=== PATIENT | female | born 1980 | race Caucasian/White ===

== ENCOUNTER 2021-09-11 12:31 | Outpatient (CLI) | payer OTHER, SELFPAY | END 2021-09-11 12:32 | disposition home or self-care (01) | PROVIDERS: PCP Family Medicine; Visit Provider Obstetrics & Gynecology | DX: N92.0 Excessive and frequent menstruation with regular cycle (principal); Z01.818 Encounter for other preprocedural examination | CPT/HCPCS: 36415; 86850; 86900; 86901 ==

== ENCOUNTER 2021-09-15 01:41 | Day surgery (SDC) | payer OTHER, SELFPAY ==
[2021-09-09 09:14] VITALS: BMI 21.7
--- NOTE | 2021-09-09 09:15 | SUR.PREOP ---
Report to the Outpatient Waiting Room, entrance under the green pavilion located off [facility], at time 0600 on date 09/15/21. OR Time: 0730. - You and your visitor will be asked a series of questions to screen for COVID 19 for your protection. - Only one visitor is allowed at this time. - The patient visitor is requested to leave or wait in car when not with patient. - A mask is required within the hospital. Patients may have clear liquids (water, carbonated beverages, clear teas, apple juice) until 3 hours prior to surgery with a maximum of 20 ounces. - No food from midnight until time of surgery - Infants may have breast milk until 4 hours before surgery, formula 6 hours prior to surgery. - Children will be allowed to drink immediately following surgery. If applicable, please bring a bottle or sippy cup to assist with drinking. Juice, water, soda, and popsicles are readily available. For infants on formula, please bring formula the day of surgery. Pacifiers are allowed. Take the following medications with a SIP of water the morning of surgery: N/A Medications to discontinue per physician N/A Date to take last dose N/A Please no make-up, nail thai, hairspray, perfume, deodorant, or body powder the day of surgery. No jewelry (including any body piercings) or valuables the day of surgery, leave them at home. Please take a shower or bath the night before, or the morning of, surgery with an antibacterial soap. Wear comfortable, loose fitting clothing. Children are encouraged to wear pajamas. - Jewelry must be removed prior to entering the operating room. Rings and piercings that are not removed may be cut off. - The hospital will not accept responsibility for valuables. - Please leave all valuables, including medications, at home the day of surgery. If you are going home after surgery, a licensed funeral car driver must drive you home. - NO public transportation without another adult. - We recommend that an adult stay with you for 24 hours following discharge. - We also recommend that you do not drive, make important decision, drink alcoholic beverages, or take any drugs that were not prescribed by your health care provider for at least 24 hours after your discharge time. For Pediatric surgeries, we recommend two adults accompany the child home (only one inside the building at this time). Follow any additional instructions given to you from your surgeon. If you or anyone in your household have experienced Covid symptoms in the past week, please notify your surgeon or the nurse liaison at the phone number below for possible testing. Telephone instructions given to DANNY OVALLES and asked if any additional questions and then verbalized understanding. Patient advised to call surgeon office or pre surgery nurse liaison [phone] if any additional questions.
[2021-09-15] VITALS (12 sets, daily range): BP systolic 90–110; BP diastolic 49–74; PULSE 45–87; RESP 12–18; TEMP 36.3–37.4; O2SAT 95–100
[2021-09-15] MEDS: ACETAMINOPHEN 500 MG TABLET 1000 MG PO (06:30)
[2021-09-15] MEDS: KETOROLAC 15 MG/ML VIAL (*BKC) IV PUSH (06:30)
[2021-09-15] MEDS: LACTATED RINGERS 1,000 ML 30 ML IV CONT (06:30)
--- NOTE | 2021-09-15 06:39 | P.PNAN_ITS ---
Anes - Initial Pre Proc Eval Procedure: Operation Date: 09/15/21 07:30 Proposed Procedures p Total Laparoscopic Hysterectomy with Bilateral Salpingo Oophorectomy - Vonnie Guzman MD Date/Time: 09/15/21 06:39 Surgeon: Vonnie Guzman MD Pre Op Diagnosis: menorrhagia Patient Data Age: 40 Gender: F Height: 1.68 m Weight: 60.8 kg Last Vital Signs Temp 36.6 C 09/15/21 06:05 Pulse 70 09/15/21 06:05 Resp 16 09/15/21 06:05 BP 110/74 09/15/21 06:05 Pulse Ox 100 09/15/21 06:05 O2 Del Method Room Air 09/15/21 06:05 Allergies Allergy/AdvReac Type Severity Reaction Status Date / Time codeine Allergy Hallucinati Verified 09/15/21 06:11 ng Home Medications Medication Instructions Recorded Confirmed Type No Home Medications 09/09/21 09/15/21 History Patient hx anesthesia problems: none Family hx anesthesia problems: none Results Review: All pre-operative results and documents have been reviewed as part of the pre- operative evaluation. PMF Social History Social History Smoking status: Never smoker Living arrangements: with family Spiritual care concerns: No Anes - Eval Final PreProcedure Day of Procedure 09/15/21 06:39 Patient weight: normal Heart: regular rate and rhythm Lungs: clear to auscultation Airway: Mallampati scale class 1 Neurological: alert and oriented Last oral intake: >/= 8 hours ASA classification: I Emergent: no Anesthetic plan: proceed Anesthesia type and monitoring: general ETT and standard monitoring Results Review: All pre-operative results and documents have been reviewed as part of the pre- operative evaluation. Informed Consent: The patient's anesthetic plan and its attendant risks and benefits were discussed with the patient/family/POA. Questions were solicited and answers provided to the satisfaction of the patient/family/POA.
--- NOTE | 2021-09-15 07:12 | WPDHPUPDATE1 ---
History and Physical Update Update Date/Time: 09/15/21 07:12 History and Physical has been reviewed, including an updated exam of the patient. There are NO changes in the patient's condition. Risks, benefits, and alternatives have been discussed and questions answered. Patient agrees to proceed with procedure.
--- NOTE | 2021-09-15 07:18 | PM.IMHP ---
H&P: HPI History of Present Illness Date/Time: 09/15/21 07:18 Chief Complaint: Menorrhagia Narrative: This patient is a 40-year-old female with severe menorrhagia and a strong family history of ovarian cancer. We have agreed to perform total laparoscopic hysterectomy and bilateral salpingo-oophorectomy. She understands the risk. She understands that injuries may occur that result in hospitalization, more surgery, and severe illness. She understands there is risk of hemorrhage and infection. We have agreed to proceed. Review of Systems Review of Systems: All systems reviewed & are unremarkable except as noted in HPI and below Constitutional: Constitutional: Denies chills, Denies fatigue, Denies fever(s) and Denies weakness Eyes: Eyes: Denies blurry vision, Denies change in vision, Denies loss of peripheral vision, Denies loss of vision, Denies other visual disturbances and Denies eye pain ENT: Denies vertigo, Denies dizziness, Denies hearing loss, Denies mouth pain, Denies nasal obstruction, Denies neck mass and Denies neck pain Cardiovascular: Cardiovascular: Denies chest pain, Denies diaphoresis, Denies syncope, Denies leg edema and Denies dyspnea Respiratory: Respiratory: Denies chest congestion, Denies cough, Denies hemoptysis, Denies dyspnea and Denies wheezing Gastrointestinal: Gastrointestinal: Denies abdominal pain, Denies constipation, Denies diarrhea, Denies nausea and Denies vomiting Genitourinary: Genitourinary: Denies hematuria, Denies change in libido, Denies nocturia, Denies genital lesions, Denies flank pain and Denies urinary urgency Musculoskeletal: Musculoskeletal: Denies abnormal gait, Denies back pain, Denies myalgias, Denies arthralgias, Denies joint swelling, Denies muscle weakness and Denies neck pain Integumentary/Breasts: Skin/Breast: Denies swelling, Denies breast pain, Denies breast mass, Denies dry skin, Denies nipple discharge, Denies unusual bruising and Denies jaundice Neurologic: Denies Neuro-related abnormal movements, Denies Abnormal speech present, Denies abnormal gait, Denies behavioral changes, Denies confusion, Denies vertigo, Denies dizziness, Denies syncope, Denies loss of vision, Denies memory loss, Denies convulsions and Denies weakness Psychiatric: Psychiatric: Denies abnormal sleep pattern, Denies behavioral changes, Denies change in libido, Denies confusion, Denies depression, Denies anhedonia and Denies memory loss Endocrine: Endocrine: Reports no additional endocrine complaints, Denies change in libido and Denies fatigue Hematologic/Lymphatic: Hematologic/Lymphatic: Reports no additional hematologic/lymphatic complaints Allergic/Immunologic: Allergic/Immunologic: Reports no additional allergic/immunologic complaints and Denies wheezing PMFSH Social History Social History Smoking status: Never smoker Living arrangements: with family Spiritual care concerns: No Meds Home Medications and Allergies Home Medications Medication Instructions Recorded Confirmed Type No Home Medications 09/09/21 09/15/21 History Allergies Allergy/AdvReac Type Severity Reaction Status Date / Time codeine AdvReac Hallucinati Verified 09/15/21 07:16 ng Vital Signs Vital Signs - 24 hr 09/15/21 06:05 Temperature 97.9 F Pulse Rate 70 Respiratory Rate 16 Blood Pressure 110/74 Pulse Oximetry 100 Oxygen Delivery Room Air Exam Const: General: cooperative, healthy appearing, comfortable and no acute distress; No confusion Orientation/consciousness: oriented to person, oriented to place, oriented to time and No confusion HENMT: Head: normal to inspection Ears: external ears normal General nose exam: Normal external nose present Face and sinus: normal facial exam Eyes: General: appearance normal, both eyes and all related structures Neck: Neck: normal visual inspection, trachea midline and supple Resp: Auscultation: clear to auscultation bilaterally, no crack
[2021-09-15] MEDS: ceFAZolin 2 GM/D5W 50 ML 2 GM/50 ML BAG IVPB (07:28)
[2021-09-15] MEDS: ceFAZolin SODIUM 1 GM VIAL IRRIGATION (08:24)
--- NOTE | 2021-09-15 09:01 | P.OP_ITS ---
Procedure Note - Detailed Date of Procedure 09/15/21 Pre-op Diagnosis menorrhagia, family history of ovarian cancer Post-op Diagnosis Same Procedure Performed Total laparoscopic hysterectomy and bilateral salpingo-oophorectomy. Surgeon Vonnie Guzman MD Anesthesia General Indications Menorrhagia and family history of ovarian cancer Findings Mildly enlarged uterus, normal-appearing tubes and ovaries. Normal vulva vagina and cervix. Description of Procedure This patient was taken to the operating room. She was prepped and draped in the dorsal lithotomy position after induction of general anesthesia. The uterine manipulator and Max cup were placed. This was done with a speculum and tenaculum. The speculum was placed. The cervix was grasped with a tenaculum. The stay sutures were placed at 3 and 9:00 a.m.. The stay sutures of 0 Vicryl were brought through the appropriately sized Max cup. The tip of the ADAM manipulator was placed in the intrauterine cavity. The cup was slid into place around the cervix and into the fornices. It was locked into place. The sutures were then wrapped around the handle and tied under tension. A 5 mm skin incision was made in the left upper quadrant the abdomen. A 5 mm trocar was inserted into the intrauterine cavity under direct visualization of the scope. Pneumoperitoneum was achieved. A left lower quadrant 11 mm incision was made with scalpel. An 11 mm trocar was inserted into the anterior abdominal cavity under direct visualization the scope. A 5 mm infraumbilical incision was made with a scalpel and a 5 mm trocar was inserted the intra-abdominal cavity under direct visualization of the scope. Bilateral ureteral lysis was performed. This was done from the pelvic brim down to the uterine artery. This was done with careful dissection using sharp and blunt dissection. The infundibulopelvic ligaments were isolated after identification of the ureters bilaterally. These infundibulopelvic ligaments were cauterized and transected with LigaSure cautery. The para ovarian tissue was cauterized and transected with LigaSure cautery bilaterally. Moving around the ovary into the broad ligament the tissue was cauterized transected with Lig aSure cautery. The round ligaments were cauterized transected with LigaSure cautery this was all done in a bilateral fashion. In a stepwise fashion along the lateral aspects of the uterus the round ligament and broad ligaments were cauterized transected down to the level of the uterine arteries. A bladder flap was created in the bladder was moved distally to the end of the cervix and over the Max cup. The bilateral uterine arteries were cauterized and transected. Colpotomy was then performed. In a circumferential fashion the vagina was transected using unipolar cautery. The incision was made down on the Max cup. The uterus, cervix, fallopian tubes and ovaries were taken out through the vagina. A pneumo occluder was placed in the vagina. The vaginal cuff was closed with a 0 V lock suture in a running fashion. The pelvis was irrigated with copious amounts antibiotic irrigation. The ureters were again examined and found to be intact and flowing freely under the uterine arteries into the bladder. The bladder was intact. It was examined directly. The vagina was irrigated with Betadine solution after removal of the Pneumo occluder. The patient was taken to recovery room. She was stable condition. Sponge lap and needle counts were correct x2. Drains Yes Packing No Pathology Yes Complications No immediate complications Condition Stable Disposition Floor
[2021-09-15] MEDS: fentaNYL CITRATE INJ (*CRX) 100 MCG/2 ML VIAL 25 MCG IV PUSH ×2 (09:38→10:10)
--- NOTE | 2021-09-15 10:25 | PC.NURSE ---
This patient, Hernandez Lopez, was received from PACU via bed on 09/15/21 at 1025. Patient/family oriented to unit policies and routines
[2021-09-15] MEDS: DEXTROSE 5%/0.45% SOD CHL 1,000 ML 125 ML IV CONT (11:10)
[2021-09-15] MEDS: ESTRADIOL 7 DAY 0.05 MG PATCH TRANSDERM (11:10)
[2021-09-15] MEDS: KETOROLAC 30 MG/ML VIAL (*BKC) IV PUSH (11:22)
[2021-09-15] MEDS: HYDROcodone/acetaminophen (*CRX) 10-325 MG TABLET 1 TAB PO ×2 (13:07→19:42)
[2021-09-15] MEDS: ONDANSETRON INJ 4 MG/2 ML VIAL IV PUSH (20:24)
[2021-09-16 04:45] VITALS: PULSE 80; RESP 16; O2SAT 98
[2021-09-16 05:05] VITALS: BP 88/53; PULSE 80; RESP 16; TEMP 37.1; O2SAT 98
--- NOTE | 2021-09-16 07:00 | PC.NURSE ---
PT introductions made and plan of care discussed per post op station mechanic surgery, pain management, daily care activities and pending discharge to home. PT sole recipient of such instructions and no barriers to learning identified at this time. PT received such instructions per one to one discussion, and demonstrations this shift. PT verbalized understanding of such care.
[2021-09-16] MEDS: KETOROLAC 30 MG/ML VIAL (*BKC) IV PUSH (07:06)
[2021-09-16] MEDS: HYDROcodone/acetaminophen (*CRX) 10-325 MG TABLET 1 TAB PO ×2 (07:07→10:26)
[2021-09-16 07:10] VITALS: BP 113/68; PULSE 86; RESP 14; TEMP 36.6; O2SAT 100
--- NOTE | 2021-09-16 09:51 | WPDANESPN ---
Anes - Prog Note Post-Op Date/Time: 09/16/21 09:51 Vital Signs: Last Vital Signs Temp 37.1 C 09/16/21 05:05 Pulse 80 09/16/21 05:05 Resp 16 09/16/21 05:05 BP 88/53 L 09/16/21 05:05 Pulse Ox 98 09/16/21 05:05 O2 Del Method Room Air 09/16/21 04:45 O2 Flow Rate 10 09/15/21 09:20 Pain Score (VAS): 0 I/O: Intake & Output 09/15/21 09/16/21 09/16/21 23:59 07:59 15:59 Output Total 160 120 Balance -160 -120 Patient Feedback: Patient satisfied with anesthetic care.
[2021-09-16] MEDS: SIMETHICONE 80 MG TAB.CHEW ×3 (10:21→13:56)
[2021-09-16] MEDS: DOCUSATE SODIUM 100 MG CAPSULE (10:27)
--- NOTE | 2021-09-16 10:54 | PM.GYNPNOP ---
VOLUNTEER PATIENT REPRESENTATIVE - A/P Postoperative Procedures: Procedures Operation Date: 09/15/21 07:30 Actual Procedure Side Surgeon p Total Laparoscopic Hysterectomy with Bilateral Salpingo Oophorectomy Bilateral Vonnie Guzman MD Postoperative day: 1 Postoperative status: doing well and other (Tollerating Regular Diet) Postoperative plan: routine post-op care and discharge Time Spent With Patient Time: Total time spent is greater than 50% in coordination of care (as documented) at patient's floor/unit and/or counseling patient: Time with patient: 15 - 25 minutes VOLUNTEER PATIENT REPRESENTATIVE- PN:Subj Post-Op Subjective Date/time seen: 09/16/21 10:54 Subjective: patient reports feeling better, pain is well controlled and patient is tolerating oral intake Exam Const: General: cooperative, healthy appearing, comfortable and no acute distress Resp: Auscultation: no crackles, no rales, no rhonchi and no wheezes Cardio: Rhythm: regular rhythm Heart sounds: no click and no murmurs GI: Inspection: non-distended Auscultation: normal bowel sounds Other: Incisions - CDI Extrem: General: normal to inspection, no pedal edema and no calf tenderness VOLUNTEER PATIENT REPRESENTATIVE - PN: Obj Data Vital Signs Vital Signs: Vital Signs - 24 hr 09/15/21 12:06 09/15/21 16:05 09/15/21 20:00 Temperature 99.4 F 98.0 F 98.6 F Pulse Rate 60 58 L 68 Respiratory Rate 16 18 16 Blood Pressure 98/61 L 99/53 L 105/63 Pulse Oximetry 95 99 Oxygen Delivery 09/15/21 23:27 09/15/21 23:27 09/16/21 05:05 Temperature 98.8 F 98.8 F Pulse Rate 87 87 80 Respiratory Rate 18 18 16 Blood Pressure 90/49 L 88/53 L Pulse Oximetry 98 98 98 Oxygen Delivery Room Air 09/16/21 04:45 Temperature Pulse Rate 80 Respiratory Rate 16 Blood Pressure Pulse Oximetry 98 Oxygen Delivery Room Air Intake/Output Intake/Output: Intake & Output 09/13/21 09/14/21 09/15/21 09/16/21 23:59 23:59 23:59 23:59 Intake Total 250 Output Total 365 120 Balance -115 -120 Meds/Results Medications: Active Medications Generic Name Dose Route Start Last Admin Trade Name Freq PRN Reason Stop Dose Admin Hydrocodone Bitart/Acetaminophen 1 tab 09/15/21 10:21 Hydrocodone/Acetaminophen (*Crx) 5-325 Mg Tablet PO Q3H PRN Pain Rated 5 or Less Hydrocodone Bitart/Acetaminophen 1 tab 09/15/21 10:21 09/16/21 10:26 Hydrocodone/Acetaminophen (*Crx) 10-325 Mg Tablet PO 1 tab Q3H PRN Administration Pain Rated 6 or Greater Estradiol 0.05 mg 09/15/21 10:21 09/15/21 11:10 Estradiol 7 Day 0.05 Mg Patch TRANSDERM 0.05 mg WEEKLY YANDEL Administration Dextrose/Sodium Chloride 1,000 mls @ 125 mls/hr 09/15/21 10:21 09/15/21 11:10 Dextrose 5% Sodium Chloride 0.45% IV CONT 125 mls/hr .Q8H YANDEL Administration Ibuprofen 600 mg 09/15/21 10:21 Ibuprofen 600 Mg Tablet PO Q6H PRN Cramping Ketorolac Tromethamine 30 mg 09/15/21 10:21 09/16/21 07:06 Ketorolac 30 Mg/Ml Vial (*Bkc) IV PUSH 09/20/21 10:20 30 mg Q6H PRN Administration Pain Rated 4-6 Naloxone HCl 0.1 mg 09/15/21 10:21 Naloxone Hcl 0.4 Mg/Ml Vial IV PUSH Q2M PRN Respiratory rate less than 10 Ondansetron HCl 4 mg 09/15/21 10:21 09/15/21 20:24 Ondansetron Inj 4 Mg/2 Ml Vial IV PUSH 4 mg Q6H PRN Administration Nausea And Vomiting
[2021-09-16] MEDS: IBUPROFEN 600 MG TABLET PO (14:00)
[2021-09-16] MEDS: HYDROcodone/acetaminophen (*CRX) 5-325 MG TABLET 1 TAB PO (14:00)
--- NOTE | 2021-09-16 14:30 | PC.NURSE ---
Pt received discharge instructions per protocol and verbalized understanding of such care.
--- NOTE | 2021-09-16 15:09 | PC.NURSE ---
PT discharged to home via wheelchair accompanied by spouse and taken to waiting car. Follow up appts confirmed
== END 2021-09-16 15:09 | disposition home or self-care (01) ==
LOC: ANHSURGERY 05:51 → ANHOB2 10:25
PROVIDERS: PCP Family Medicine; Visit Provider Obstetrics & Gynecology
PROC: 0UT9FZZ Resection of Uterus, Via Natural or Artificial Opening With Percutaneous Endoscopic Assistance (ICD-10-PCS; CPT 58571; principal; 2021-09-15 07:30)
DX: N92.0 Excessive and frequent menstruation with regular cycle (principal); Z80.41 Family history of malignant neoplasm of ovary; N72 Inflammatory disease of cervix uteri; N87.9 Dysplasia of cervix uteri, unspecified; N84.0 Polyp of corpus uteri
CPT/HCPCS: 58571; 36415; 86850; 86900; 86901; 88307; 99199; A9270; J0330; J0690; J1100; J1170; J1885; J2250; J2370; J2405; J2704; J2710; J3010; J7120

== ENCOUNTER 2021-11-03 12:13 | Outpatient (CLI) | payer OTHER, SELFPAY ==
--- NOTE | ~2021-11-03 | CT_ITS ---
EXAMINATION: CT abdomen pelvis w con DATE: 11/03/2021 12:39 INDICATION: Pelvic hematoma; status post hysterectomy on September 15, 2021. Removal of surgical drain thi s morning. TECHNIQUE: Computed tomography (CT) of the abdomen and pelvis was performed with 100 CC Omnipaque 350 intravenous contrast. Automated exposure control and iterative reconstruction technique were employe d. Exam dose: 288.12 mGy-cm total exam DLP. COMPARISON: None. FINDINGS: The lung bases are clear. Normal heart size. No pericardial or pleural effusion. The liver, gallbladder, bile ducts, spleen, pancreas and pancreatic duct are unremarkable. Normal morphology of the adrenal glands. No renal mass lesion or urinary tract calculus or hydrourete ronephrosis. There is posterior cul-de-sac approximately 3.7 x 5.8 cm circumscribed soft tissue density with thin soft tissue capsule which likely represents a hematoma. Differential diagnosis includes right ovarian mass or complicated or hemorrhagic ovarian cyst. Diverticulosis of the colon; no CT evidence of diverticulitis. Normal appendix. No bowel obstruction or intraperitoneal free air is detected. Normal caliber of the abdominal aorta. No intraperitoneal or retroperitoneal or pelvic mass lesion or adenopathy or ascites is noted otherwise. Small fat-containing umbilical hernia. Included skeletal structures are normal in appearance. IMPRESSION: 3.7 x 5.8 cm circumscribed soft tissue density in the posterior cul-de-sac, likely a hem atoma Reviewed, dictated and finalized at [facility]. Reviewed, dictated and finalized at [facility]. IMPRESSION: 3.7 x 5.8 cm circumscribed soft tissue density in the posterior cu l-de-sac, likely a hematoma
== END 2021-11-03 12:14 | disposition home or self-care (01) ==
PROVIDERS: PCP Family Medicine; Visit Provider Obstetrics & Gynecology
DX: N94.89 Other specified conditions associated with female genital organs and menstrual cycle (principal)
CPT/HCPCS: 74177; Q9967

== ENCOUNTER 2021-11-20 01:47 | Day surgery (SDC) | payer OTHER, SELFPAY ==
[2021-11-17 12:29] VITALS: BMI 22.4
--- NOTE | 2021-11-17 12:46 | PC.NURSE ---
Report to the Outpatient Waiting Room, entrance under the green pavilion located off [facility], at time 0600 on date 11/20/21. OR Time: 0730. - You and your visitor will be asked to self-screen and do not enter if you have any COVID symptoms. - Only one visitor and NO children visitors are allowed at this time. - The patient visitor is requested to leave or wait in car when not with patient due to restrictions. - A mask is required within the hospital. Patients may have clear liquids (water, carbonated beverages, clear teas, apple juice) until 3 hours prior to surgery with a maximum of 20 ounces. - No food from midnight until time of surgery Take the following medications with a SIP of water the morning of surgery: ANTIBIOTIC Medications to discontinue per physician: N/A Date to take last dose: N/A Please no make-up, nail stateless, hairspray, perfume, deodorant, or body powder the day of surgery. No jewelry (including any body piercings) or valuables the day of surgery, leave them at home. Please take a shower or bath the night before, or the morning of, surgery with an antibacterial soap. Wear comfortable, loose fitting clothing. - Jewelry must be removed prior to entering the operating room. Rings and piercings that are not removed may be cut off. - The hospital will not accept responsibility for valuables. - Please leave all valuables, including medications, at home the day of surgery. If you are going home after surgery, a licensed [employer] flatbed driver must drive you home. - NO public transportation without another adult. - We recommend that an adult stay with you for 24 hours following discharge. - We also recommend that you do not drive, make important decision, drink alcoholic beverages, or take any drugs that were not prescribed by your health care provider for at least 24 hours after your discharge time. Follow any additional instructions given to you from your surgeon. If you or anyone in your household have experienced Covid symptoms in the past week, please notify your surgeon or the nurse liaison at the phone number below for possible testing. Telephone instructions given to PT - DANNY RENTERIA and asked if any additional questions and then verbalized understanding. Patient advised to call surgeon office or pre surgery nurse liaison [phone] if any additional questions.
[2021-11-20] VITALS (7 sets, daily range): BP systolic 89–115; BP diastolic 55–69; PULSE 51–89; RESP 10–16; TEMP 36.1; O2SAT 100
[2021-11-20] MEDS: ACETAMINOPHEN 500 MG TABLET 1000 MG PO (07:00)
[2021-11-20] MEDS: LACTATED RINGERS 1,000 ML 30 ML IV CONT ×2 (07:00→09:12)
--- NOTE | 2021-11-20 07:00 | WPDHPUPDATE1 ---
History and Physical Update Update Date/Time: 11/20/21 07:00 History and Physical has been reviewed, including an updated exam of the patient. There are NO changes in the patient's condition. Risks, benefits, and alternatives have been discussed and questions answered. Patient agrees to proceed with procedure.
[2021-11-20] MEDS: KETOROLAC 15 MG/ML VIAL (*BKC) IV PUSH (07:07)
--- NOTE | 2021-11-20 07:09 | PM.IMHP ---
H&P: HPI History of Present Illness Date/Time: 11/20/21 07:09 Chief Complaint: Vaginal bleed Narrative: Patient is a 40 year who presents for diagnostic laparoscopy. Patient has a pelvic hematoma. She is about 9 weeks postop from a total laparoscopic hysterectomy. Vaginal bleeding began about 7 weeks after the surgery. Patient was found to have a hematoma. A drain was placed for 1 week but the bleeding persisted after drain removal and hematoma remained. We have agreed to perform diagnostic laparoscopy. Regard to vacuum with hematoma. She understands risks and she understands that surgery can result in injuries that result in hospitalization, more surgery, and severe illness. She understands the risk of hemorrhage and infection. Review of Systems Review of Systems: All systems reviewed & are unremarkable except as noted in HPI and below Constitutional: Constitutional: Denies chills, Denies fatigue, Denies fever(s) and Denies weakness Eyes: Eyes: Denies blurry vision, Denies change in vision, Denies loss of peripheral vision, Denies loss of vision, Denies other visual disturbances and Denies eye pain ENT: Denies vertigo, Denies dizziness, Denies hearing loss, Denies mouth pain, Denies nasal obstruction, Denies neck mass and Denies neck pain Cardiovascular: Cardiovascular: Denies chest pain, Denies diaphoresis, Denies syncope, Denies leg edema and Denies dyspnea Respiratory: Respiratory: Denies chest congestion, Denies cough, Denies hemoptysis, Denies dyspnea and Denies wheezing Gastrointestinal: Gastrointestinal: Denies abdominal pain, Denies constipation, Denies diarrhea, Denies nausea and Denies vomiting Genitourinary: Genitourinary: Denies hematuria, Denies change in libido, Denies nocturia, Denies genital lesions, Denies flank pain and Denies urinary urgency Musculoskeletal: Musculoskeletal: Denies abnormal gait, Denies back pain, Denies myalgias, Denies arthralgias, Denies joint swelling, Denies muscle weakness and Denies neck pain Integumentary/Breasts: Skin/Breast: Denies swelling, Denies breast pain, Denies breast mass, Denies dry skin, Denies nipple discharge, Denies unusual bruising and Denies jaundice Neurologic: Denies Neuro-related abnormal movements, Denies Abnormal speech present, Denies abnormal gait, Denies behavioral changes, Denies confusion, Denies vertigo, Denies dizziness, Denies syncope, Denies loss of vision, Denies memory loss, Denies convulsions and Denies weakness Psychiatric: Psychiatric: Denies abnormal sleep pattern, Denies behavioral changes, Denies change in libido, Denies confusion, Denies depression, Denies anhedonia and Denies memory loss Endocrine: Endocrine: Reports no additional endocrine complaints, Denies change in libido and Denies fatigue Hematologic/Lymphatic: Hematologic/Lymphatic: Reports no additional hematologic/lymphatic complaints Allergic/Immunologic: Allergic/Immunologic: Reports no additional allergic/immunologic complaints and Denies wheezing [facility] Social History Social History Smoking status: Never smoker Alcohol intake: never Substance use: never Substance use type: does not use Living arrangements: with family Spiritual care concerns: No Meds Home Medications and Allergies Home Medications Medication Instructions Recorded Confirmed Type No Home Medications 11/20/21 11/20/21 History Allergies Allergy/AdvReac Type Severity Reaction Status Date / Time codeine AdvReac Mild Hallucinati Verified 11/20/21 06:56 ng Exam Const: General: cooperative, healthy appearing, comfortable and no acute distress; No confusion Orientation/consciousness: oriented to person, oriented to place, oriented to time and No confusion HENMT: Head: normal to inspection Ears: external ears normal General nose exam: Normal external nose present Face and sinus: normal facial exam Eyes: General: appearance normal, both eyes and all related structures Neck:
--- NOTE | 2021-11-20 07:16 | WPDHPUPDATE1 ---
History and Physical Update Update Date/Time: 11/20/21 07:16 History and Physical has been reviewed, including an updated exam of the patient. There are NO changes in the patient's condition. Risks, benefits, and alternatives have been discussed and questions answered. Patient agrees to proceed with procedure.
--- NOTE | 2021-11-20 07:17 | P.PNAN_ITS ---
Anes - Initial Pre Proc Eval Procedure: Operation Date: 11/20/21 07:30 Proposed Procedures p Diagnostic Laparoscopy - Vonnie Guzman MD Date/Time: 11/20/21 07:17 Surgeon: Vonnie Guzman MD Pre Op Diagnosis: pelvic hematoma Patient Data Age: 40 Gender: F Height: 1.68 m Weight: 61.95 kg Allergies Allergy/AdvReac Type Severity Reaction Status Date / Time codeine AdvReac Mild Hallucinati Verified 11/20/21 06:56 ng Home Medications Medication Instructions Recorded Confirmed Type No Home Medications 11/20/21 11/20/21 History Patient hx anesthesia problems: post op nausea/vomiting Family hx anesthesia problems: none Results Review: All pre-operative results and documents have been reviewed as part of the pre- operative evaluation. [facility] Past Medical History Medical History Myasthenia Social History Social History Smoking status: Never smoker Alcohol intake: never Substance use: never Substance use type: does not use Living arrangements: with family Spiritual care concerns: No Anes - Eval Final PreProcedure Day of Procedure 11/20/21 07:17 Patient weight: normal Heart: regular rate and rhythm Lungs: clear to auscultation Airway: Mallampati scale class 1 Last oral intake: >/= 8 hours ASA classification: III Emergent: no Anesthetic plan: proceed Anesthesia type and monitoring: general ETT and standard monitoring Results Review: All pre-operative results and documents have been reviewed as part of the pre- operative evaluation. Informed Consent: The patient's anesthetic plan and its attendant risks and benefits were discussed with the patient/family/POA. Questions were solicited and answers provided to the satisfaction of the patient/family/POA.
[2021-11-20] MEDS: SCOPOLAMINE 1.5 MG PATCH TRANSDERM (07:24)
[2021-11-20] MEDS: ceFAZolin SODIUM 1 GM VIAL (08:27)
--- NOTE | 2021-11-20 09:13 | W.PM.PROC2 ---
Procedure Note - Detailed Date of Procedure 11/20/21 Pre-op Diagnosis pelvic hematoma, vaginal bleeding Post-op Diagnosis Same (Vaginal cuff defect) Procedure Performed Diagnostic laparoscopy Surgeon Vonnie Guzman MD Anesthesia General Indications Pelvic pain Findings 5 x 2 by 4 cm hematoma over the vaginal cuff. Diffuse inflammation around the vaginal cuff. 1.5 cm defect in the vaginal cuff. Description of Procedure The patient was taken to the operating room. She was prepped and draped in the dorsal lithotomy position after induction general anesthesia. A 5 mm incision was made with a scalpel on the abdominal skin in the left upper quadrant of the abdomen. A 5 mm trocar was inserted into the intra-abdominal cavity under direct visualization the scope. In the same fashion a 5 mm left lower quadrant trocar was inserted and a 5 mm infraumbilical trocar was inserted. Pelvic hematoma over the vaginal cuff was broken down with irrigation and suction blunt dissection. It was all evacuated. Was made hemostatic with cautery. Hematoma was also applied. Vaginal cleft was closed with locking 0 Vicryl transvaginally. The speculum was placed and a 0 Vicryl suture was used to close a running defect that was about a cm and half in length. It was in the middle 3rd of the vaginal cuff. The pelvis was irrigated. Before hematoma was applied. Antibiotic irrigation was used. The pneumoperitoneum was reduced. The trocars were removed. Skin was closed with subcuticular 4 micro. The patient's incisions were covered with Dermabond. She was taken recovery room in stable condition. Sponge lap and needle counts were correct x2. Estimated Blood Loss 60 Complications No immediate complications Condition Stable Disposition Same day
--- NOTE | 2021-11-20 09:40 | SUR.PHASEI ---
0940: Simple mask removed.
[2021-11-20] MEDS: oxyCODONE HCL (*CRX) 5 MG TAB IR PO (10:56)
== END 2021-11-20 11:18 | disposition home or self-care (01) ==
PROVIDERS: PCP Internal Medicine; Visit Provider Obstetrics & Gynecology
PROC: (CPT 49320; principal; 2021-11-20 07:30)
DX: N99.840 Postprocedural hematoma of a genitourinary system organ or structure following a genitourinary system procedure (principal); N89.8 Other specified noninflammatory disorders of vagina; Y83.8 Other surgical procedures as the cause of abnormal reaction of the patient, or of later complication, without mention of misadventure at the time of the procedure; Z90.710 Acquired absence of both cervix and uterus
CPT/HCPCS: 58999; A9270; J0690; J1100; J1885; J2250; J2405; J2704; J2710; J3010; J7030; J7120

== ENCOUNTER 2023-03-16 15:26 | Outpatient (CLI) | payer OTHER, SELFPAY ==
--- NOTE | ~2023-03-16 | MR_ITS ---
EXAMINATION: MR cervical spine wo/w con DATE: 03/16/2023 17:56 INDICATION: Neck and back pain. Left leg, hip, and groin pain. Sacral mass. TECHNIQUE: Magnetic resonance imaging (MRI) of the cervical spine was performed without and with 12 m L MultiHance intravenous contrast. COMPARISON: None FINDINGS: There is 5 degrees dextrocurvature of cervical spine. Vertebral body heights and interverte bral disc heights are normal. The spinal cord signal intensity is normal. In the area of the right pa rapharyngeal space, there is a 3.2 x 2.0 x 4.1 cm enhancing mass that displaces the parapharyngeal fa t anteriorly and separates the internal and external carotid arteries. The following disc levels are specifically discussed: C2-C3: The disc does not extend beyond the endplate margin. There is no uncovertebral joint osteoarth ritis. There is no facet joint osteoarthritis. There is no neural foraminal stenosis. There is no lana tral canal stenosis. C3-C4: The disc does not extend beyond the endplate margin. There is mild left uncovertebral joint os teoarthritis. There is mild right facet joint osteoarthritis. There is no neural foraminal stenosis. There is no central canal stenosis. C4-C5: There is a central protrusion. There is no uncovertebral joint osteoarthritis. There is mild r ight facet joint osteoarthritis. There is no neural foraminal stenosis. There is mild central canal s tenosis. C5-C6: The disc is bulging. There is mild left uncovertebral joint osteoarthritis. There is no facet joint osteoarthritis. There is no neural foraminal stenosis. There is mild central canal stenosis. C6-C7: There is a central protrusion. There is no uncovertebral joint osteoarthritis. There is no fac et joint osteoarthritis. There is no neural foraminal stenosis. There is no central canal stenosis. C7-T1: The disc does not extend beyond the endplate margin. There is no uncovertebral joint osteoarth ritis. There is mild right and moderate left facet joint osteoarthritis. There is mild left neural fo raminal stenosis. There is no central canal stenosis. IMPRESSION: 1. Mild cervical spondylosis. 2. 4.1 cm mass in the area of the right parapharyngeal space. The differential diagnosis includes per ipheral nerve sheath tumor, benign mixed tumor, and paraganglioma. Reviewed, dictated and finalized at location A. AVER LETTER IMPRESSION: 1. Mild cervical spondylosis. 2. 4.1 cm mass in the area of the right parapharyngeal space. The differential diagnosis includes peripheral nerve sheath tumor, benign mixed tumor, and leroy anglioma.
--- NOTE | ~2023-03-16 | MR_ITS ---
EXAMINATION: MR thoracic spine wo/w con DATE: 03/16/2023 17:56 INDICATION: Left leg, hip, and groin pain. Back pain. Sacral mass. TECHNIQUE: Magnetic resonance imaging (MRI) of the thoracic spine was performed without and with 12 m L MultiHance intravenous contrast. COMPARISON: None FINDINGS: Bone alignment is normal. Vertebral body heights and intervertebral disc heights are normal . The discs do not extend beyond the endplate margins. There is multilevel mild facet joint osteoarth ritis. No neural foraminal stenosis or central canal stenosis. The spinal cord signal intensity is no rmal. IMPRESSION: 1. Mild thoracic facet joint osteoarthritis. Reviewed, dictated and finalized at location A. IER
== END 2023-03-16 15:27 | disposition home or self-care (01) ==
PROVIDERS: PCP Internal Medicine
DX: M53.3 Sacrococcygeal disorders, not elsewhere classified (principal); M51.34 Other intervertebral disc degeneration, thoracic region; M47.892 Other spondylosis, cervical region
CPT/HCPCS: 72156; 72157; A9577

== ENCOUNTER → 2023-04-07 11:13 | Outpatient (CLI) | payer OTHER, SELFPAY ==
--- NOTE | ~2023-04-07 | MR_ITS ---
EXAMINATION: MR brain/brain stem wo/w con DATE: 04/07/2023 12:05 INDICATION: Peripheral nerve sheath tumor. TECHNIQUE: Magnetic resonance imaging (MRI) of the brain and brainstem was performed without and with 12 mL MultiHance intravenous contrast. COMPARISON: None. FINDINGS: There is no intracranial hemorrhage, acute infarction, or abnormal intracranial mass lesion . The ventricles are normal in size. In the area of the right parapharyngeal space, there is a 3.2 x 1.7 x 4.2 cm enhancing mass. There is fluid in left maxillary sinus. The mastoid air cells are normal . The orbits are normal. IMPRESSION: 1. Normal brain. 2. 4.2 cm mass in the area of the right parapharyngeal space. The differential diagnosis includes per ipheral nerve sheath tumor, benign mixed tumor, and paraganglioma. Reviewed, dictated and finalized at location E. [employer]OR REPAIRER IMPRESSION: 1. Normal brain. 2. 4.2 cm mass in the area of the right parapharyngeal space. The differential diagnosis includes peripheral nerve sheath tumor, benign mixed tumor, and leroy anglioma.
== END ==
PROVIDERS: PCP Internal Medicine
DX: D49.2 Neoplasm of unspecified behavior of bone, soft tissue, and skin (principal)
CPT/HCPCS: 70553; A9577

== ENCOUNTER 2023-07-13 14:38 | Outpatient (CLI) | payer OTHER, SELFPAY ==
--- NOTE | ~2023-07-13 | MR_ITS ---
EXAMINATION: MR lumbar spine wo/w con DATE: 07/13/2023 16:01 INDICATION: Schwannoma. TECHNIQUE: Magnetic resonance imaging (MRI) of the lumbar spine was performed without and with 13 mL MultiHance intravenous contrast. COMPARISON: CT abdomen and pelvis 11/03/2021 FINDINGS: Bone alignment normal. Vertebral body heights are normal. There is mildly decreased disc he ight at L3-L4, L4-L5, and L5-S1. The distal spinal cord signal intensity is normal. The conus medulla ris is at L1. There is a 3.1 x 2.4 cm mass in left S1 neural foramen that measured 2.8 x 2.2 cm on . The following disc levels are specifically discussed: L1-L2: The disc does not extend beyond the endplate margin. There is mild bilateral facet joint osteo arthritis. There is no neural foraminal stenosis. There is no central canal stenosis. L2-L3: The disc does not extend beyond the endplate margin. There is mild bilateral facet joint osteo arthritis. There is no neural foraminal stenosis. There is no central canal stenosis. L3-L4: The disc is bulging and has an annular fissure. There is mild bilateral facet joint osteoarthr itis. There is mild bilateral neural foraminal stenosis. There is mild central canal stenosis. L4-L5: The disc is bulging and has an annular fissure. There is moderate bilateral facet joint osteoa rthritis. There is mild bilateral neural foraminal stenosis. There is mild central canal stenosis. L5-S1: The disc is bulging and has an annular fissure. There is severe right and moderate left facet joint osteoarthritis. There is mild left neural foraminal stenosis. There is mild central canal steno sis. IMPRESSION: 1. Mild lumbar spondylosis. 2. 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 Reviewed, dictated and finalized at location E. IMPRESSION: 1. Mild lumbar spondylosis. 2. Chronic 3.1 cm mass in left S1 neural foramen, likely a peripheral nerve she ath tumor.
--- NOTE | ~2023-07-13 | MR_ITS ---
EXAMINATION: MR cervical spine wo/w con DATE: 07/13/2023 16:01 INDICATION: Schwannoma. TECHNIQUE: Magnetic resonance imaging (MRI) of the cervical spine was performed without and with 13 m L MultiHance intravenous contrast. COMPARISON: Cervical spine MRI 03/16/2023 FINDINGS: There is 3 degrees dextrocurvature of cervical spine. Vertebral body heights and interverte bral disc heights are normal. The spinal cord signal intensity is normal. In the area of the right pa rapharyngeal space, there is a 3.4 x 1.9 x 4.2 cm enhancing mass that displaces the parapharyngeal fa t anteriorly. The following disc levels are specifically discussed: C2-C3: The disc does not extend beyond the endplate margin. There is no uncovertebral joint osteoarth ritis. There is no facet joint osteoarthritis. There is no neural foraminal stenosis. There is no lana tral canal stenosis. C3-C4: The disc does not extend beyond the endplate margin. There is mild left uncovertebral joint os teoarthritis. There is mild right facet joint osteoarthritis. There is no neural foraminal stenosis. There is no central canal stenosis. C4-C5: There is a central protrusion. There is no uncovertebral joint osteoarthritis. There is mild r ight facet joint osteoarthritis. There is no neural foraminal stenosis. There is mild central canal s tenosis. C5-C6: The disc is bulging. There is mild left uncovertebral joint osteoarthritis. There is no facet joint osteoarthritis. There is no neural foraminal stenosis. There is mild central canal stenosis. C6-C7: There is a central protrusion. There is no uncovertebral joint osteoarthritis. There is no fac et joint osteoarthritis. There is no neural foraminal stenosis. There is no central canal stenosis. C7-T1: The disc does not extend beyond the endplate margin. There is no uncovertebral joint osteoarth ritis. There is mild right and moderate left facet joint osteoarthritis. There is mild left neural fo raminal stenosis. There is no central canal stenosis. IMPRESSION: 1. Mild cervical spondylosis. 2. Stable 4.2 cm mass in the area of the right parapharyngeal space. The differential diagnosis inclu maren peripheral nerve sheath tumor, benign mixed tumor, and paraganglioma. Reviewed, dictated and finalized at location E. IMPRESSION: 1. Mild cervical spondylosis. 2. Stable 4.2 cm mass in the area of the right parapharyngeal space. The differ ential diagnosis includes peripheral nerve sheath tumor, benign mixed tumor, an d paraganglioma.
== END 2023-07-13 14:39 ==
LOC: MICIMG 14:39
DX: D36.10 Benign neoplasm of peripheral nerves and autonomic nervous system, unspecified (principal); M47.892 Other spondylosis, cervical region; M47.896 Other spondylosis, lumbar region
CPT/HCPCS: 72156; 72158; A9577